=== PATIENT | male | born 1975 | race Caucasian/White ===

== ENCOUNTER 2021-04-26 14:08 | Emergency (ER) | payer OTHER, SELFPAY ==
--- NOTE | 2021-04-26 14:25 | ED_ITS ---
HPI - Psych General Chief Complaint: Psychiatric Symptoms Stated Complaint: Crisis Time Seen by Provider: 04/26/21 14:25 Source: patient Mode of arrival: ambulatory Limitations: no limitations History of Present Illness MD complaint: suicidal ideation (passive no plan), feels depressed and other (off of medications x 3 weeks due to lack of providers) Onset (ago): week(s) (3) Duration: getting worse History of same: Yes Relieving factors: none Exacerbating factors: other (insurance changed lost his therapist/psychiatrist medications stopped abruptly 3 weeks ago - jose bolton) Context: not taking psychiatric medications Associated psychiatric symptoms: depression and suicidal ideation ( I want to plead the 5th because I don't want to be forced to stay here. I have no plan. I have not attempted before. ) Associated symptoms: denies other symptoms Treatments prior to arrival: none If self harm: admits thoughts of self harm Related Data Allergies Allergy/AdvReac Type Severity Reaction Status Date / Time No Known Allergies Allergy Verified 04/26/21 14:35 Review of Systems Verdana 4l Review of Systems: Verdana 4d Verdana 4d Constitutional : No Fever, No Chills ENT/Mouth : No Ear Pain, No Nasal Congestion, No sore throat Eyes: No Eye Pain, No Swelling, No Redness Cardiovascular : No Chest Pain, No SOB Respiratory : No Cough, No Sputum, No Dyspnea GastrointestinalGastrointestinal : No Nausea, No Vomiting, No Diarrhea, No Hematochezia, No Melena Genitourinary : No Dysuria, No Urinary Frequency, No Hematuria Musculoskeletal : No Myalgias Skin : No Skin Lesions, No rash Neuro : No Weakness, No Numbness, No Paresthesias, No Dizziness, No Headache Psych : positive Anxiety, positive Depression, passive SI no plan no HI Heme/Lymph: No Lymphadenopathy Endocrine : No Polyuria, No Polydipsia All other systems reviewed and are negative [facility] Past Medical History Attestation statement: The following information was validated with the patient. Medical History Major depressive disorder Social History Social History (Updated 04/26/21 @ 14:55 by Gali Kidd DO) Patient Tobacco Use Status: Never used Tobacco Substance Use Type: Crack/Cocaine and Marijuana Advance Directives: No Advance Directives Information Provided: No Physical Exam Verdana 4l Vital Signs: Verdana 4d Verdana 4d Vital Signs: Verdana 4d Verdana 4Bd Last Vital Signs Verdana 4d Wash Box Operator New 4d Wash Box Operator New 4d Temp 97.3 F 04/26/21 14:40 Wash Box Operator New 4d Pulse 66 04/26/21 14:40 Wash Box Operator New 4d Resp 16 04/26/21 14:40 BP 124/77 04/26/21 14:40 Pulse Ox 99 04/26/21 14:40 BMI result Body Mass Index 25.0 Appearance: Alert. Oriented X3. No acute distress. Calm and cooperative Eyes: Pupils equal, round and reactive to light. ENT: Pharynx normal. Neck: Normal inspection. Neck supple. CVS: Normal heart rate and rhythm. Pulses normal. Respiratory: No respiratory distress. Breath sounds normal. Abdomen: Soft and non-tender. Skin: Skin warm and dry. Normal skin color. Normal skin turgor. Extremities: No lower extremity edema. No calf ttp Neuro: Oriented X 3. No motor deficit. No sensory deficit. CN2-12 intact Course Course Course Narrative: Physician observation started at 344pm Patient placed in physician observation because the patient needed more time for CARE team to assess his acute psychiatric needs. At the time observation was started the patient's vitals were stable, patient is alert and oriented, Neuro: nonfocal, CV RRR, Lungs clear MDM - Psych MDM Narrative Medical decision making narrative: 45 yo male with hx of major depression here with c/o running out of medications 3 weeks ago passive SI smoking crack on the weekends - not having a therapist or psychiatrist and here in our ED looking for a way to see a therapist/psychiatrist. At this time labs, CARE tem consult ordered. Dispo per their recommendations. Lab Data Result diagrams: 04/26/21 15:26 04/26/21 15:26 Labs: Lab Results 04/26/21 04/26/21 04/26/21 Range/Units 14:28 14:28 15:26 WBC 6.2 (4.8-10.8) X10*3/uL RBC 5.14 (4.60-5.80) X10*6/uL Hgb 15.9 (14.0-18.0) g/dl Hct 46.7 (42.0-52.0) % MCV 90.9 (80.0-98.0) fL MCH 30.9 (27.0-33.0) pg MCHC 34.0 (31.0-36.0) g/dl RDW 12.5 (11.0-16.0) % Plt Count 283 (160-400) X10*3/uL MPV 10.4 (9.4-12.4) fL Immature Gran % 0.3 (0.0-0.4) % (Auto) Neut % (Auto) 57.6 (45-73) % Lymph % (Auto) 23.5 (20-40) % Foster % (Auto) 14.6 H (2-11) % Eos % (Auto) 3.2 (0-4) % Baso % (Auto) 0.8 (0-2) % Lymph # (Auto) 1.5 (1.2-4.9) X10*3/uL Foster # (Auto) 0.9 (0.1-1.2) X10*3/uL Eos # (Auto) 0.2 (0.0-0.4) X10*3/uL Baso # (Auto) 0.1 (0.0-0.2) X10*3/uL Abs Immat Gran (auto) 0.02 (0.00-0.03) X10*3/uL Absolute Neuts (auto) 3.6 (2.0-8.3) x10*3/uL Absolute Nucleated 0.000 (0.0-0.012) RBC X10*3/uL Nucleated RBC % 0.0 (0.0-0.2) /100WBC (auto) Urine Opiates Screen Not Detected (Not Detect) Urine Fentanyl Screen Not Detected (Not Detect) Ur Barbiturates Not Detected (Not Detect) Screen Ur Phencyclidine Scrn Not Detected (Not Detect) Ur Amphetamines Not Detected (Not Detect) Screen U Benzodiazepines Not Detected (Not Detect) Scrn Urine Cocaine Screen Not Detected (Not Detect) U Marijuana (THC) POSITIVE H (Not Detect) Screen COVID-19 (MELODY) Negative (Negative) COVID-19 Clin Com See Note Discharge Plan Discharge Clinical Impression: Depression Qualifiers: Depression Type: unspecified Qualified Code(s): F32.A - Depression, unspecified Patient Disposition: Still a Patient
[2021-04-26 14:40] VITALS: BP 124/77; PULSE 66; RESP 16; TEMP 36.3; O2SAT 99; BMI 25.0
[2021-04-26 14:48] LABS: Amphetamine Screen Urine Not Detected (Not Detect); Barbiturates, Urine Not Detected (Not Detect); Benzodiazepines Screen Urine Not Detected (Not Detect); Cannabinoid Screen Urine POSITIVE (Not Detect); Cocaine Screen Urine Not Detected (Not Detect); Fentanyl, urine Not Detected (Not Detect); Opiate Screen Urine Not Detected (Not Detect); Phencyclidine Screen Urine Not Detected (Not Detect)
[2021-04-26 14:51] LABS: COVID-19 Test Negative (Negative)
[2021-04-26 15:31] LABS: MANUAL DIFF FLAG NO
[2021-04-26 15:35] LABS: Basophils Absolute Auto 0.1 X10*3/uL (0.0-0.2); Basophils Percent Auto 0.8 % (0-2); Eosinophils Absolute Auto 0.2 X10*3/uL (0.0-0.4); Eosinophils Percent Auto 3.2 % (0-4); Hematocrit 46.7 % (42.0-52.0); Hemoglobin 15.9 g/dl (14.0-18.0); Imm Gran Abs Auto 0.02 X10*3/uL (0.00-0.03); Imm Gran Pct Auto 0.3 % (0.0-0.4); Lymphocytes Absolute Auto 1.5 X10*3/uL (1.2-4.9); Lymphocytes Percent Auto 23.5 % (20-40); Mean Corpuscular Hemoglobin 30.9 pg (27.0-33.0); Mean Corpuscular Volume 90.9 fL (80.0-98.0); Mean Platelet Volume 10.4 fL (9.4-12.4); Monocytes Absolute Auto 0.9 X10*3/uL (0.1-1.2); Monocytes Percent Auto 14.6 % (2-11); Neutrophils Absolute Auto 3.6 x10*3/uL (2.0-8.3); Neutrophils Percent Auto 57.6 % (45-73); Platelet Count 283 X10*3/uL (160-400); Red Blood Count 5.14 X10*6/uL (4.60-5.80); Red Cell Distribution Width 12.5 % (11.0-16.0); White Blood Count 6.2 X10*3/uL (4.8-10.8)
[2021-04-26 15:49] LABS: Alanine Aminotransferase 19 U/L (0-40); Albumin Level 4.6 g/dL (3.5-5.0); Alkaline Phosphatase 57 U/L (39-117); Anion Gap 13 (12-20); Aspartate Amino Transferase 12 U/L (5-37); Bilirubin Direct 0.2 mg/dL (0.0-0.5); Bilirubin Total 0.4 mg/dL (0.0-1.0); Blood Urea Nitrogen 18 mg/dL (9-16); Calcium 9.9 mg/dL (8.4-10.2); Carbon Dioxide 26 mmol/L (22-29); Chloride 108 mmol/L (96-108); Creatinine Clr Calc Pharmacy 82.4; Estimated Glomerular Filt Rate > 60; Glucose Random 95 mg/dL (60-115); Potassium 4.7 mmol/L (3.3-5.1); Sodium 142 mmol/L (135-145); Total Protein 6.9 g/dL (6.5-8.0)
--- NOTE | 2021-04-26 16:22 | PC.NURSE ---
resting quietly. no complaints at this time. skin pwd. CARE team present for conversation. Pt states he has been dry of ETOH x 5 years, cocaine use on weekends only,
[2021-04-26 16:39] VITALS: BP 116/70; PULSE 57; RESP 16; TEMP 37; O2SAT 99
--- NOTE | 2021-04-26 20:38 | MHC.CARE ---
CARE team met with pt for a crisis consult. Pt presented to ED by EMS. He reports his insurance was changed and his services were no longer covered, therefore ran out of his medications abruptly. Pt reports he is frustrated with the system and has attempted to obtain providers however this process has been stressful to him and reports feeling overwhelmed and frustrated that he has given up. Pt reports he has called his insurance company obtained providers in network, contacted many and they are either not taking new patients or hasn't contacted him back. He reports he is on long waiting list and doesn't feel he can wait this long. 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 Pt reports he currently lives with his GM because he lost his apartment. Pt reports many psychosocial stressors. 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 He ran out of his medications three weeks ago, reports he has had one previous psych admissio 6 months ago due to loosing his apartment and feeling suicidal. T/w contacted [facility], [facility] and [facility] and there are no records of pt having any psych hx. Pt denies having any suicide attempts. Pt reports this admission was not helpful and more detrimental to his mental health. Pt states he has been smoking crack- last use was last week and THC. Pt reports he has been 5 years sober from alcohol and reports he was addicted to Kratom (opiate) for 8 years which was problematic Pt reports he came to the ED today for assistance with obtaining a therapist and psychiatrist. Pt reports interest in PHP. He was provided with information and hopeful that he is able to start as soon as possible as he reports he is struggling without his medications. Pt states he will continue taking his hydroxyzine which is what he has left. Pt endorses SI with no plan or intent. His SI is in the context of not receiving help. Pt is aware that there will be a referal placed for him and he can follow up on Friday. Case discussed with Clinical coordinator OTTO Giron, FRAME OPERATOR and Dr. Gali Kidd
--- NOTE | 2021-04-28 09:39 | MHC.CARE ---
Contacted pt as a follow up to his ED visit. He stated he is doing well and is, at times Up and down but does sound optimistic about getting into the Partial Hospitalization program. 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 CARE Team will e mail PHP to advise them of same.No SI.
== END 2021-04-26 17:23 | disposition home or self-care (01) ==
PROVIDERS: Emergency Provider Emergency Medicine
DX: F32.A Depression, unspecified (principal); R45.851 Suicidal ideations; Z20.822 Contact with and (suspected) exposure to COVID-19
CPT/HCPCS: 36415; 80048; 80076; 80307; 85025; 87635; 99284; 99285

== ENCOUNTER 2021-05-11 10:15 | Outpatient (RCR) | payer OTHER, SELFPAY ==
[2021-05-02 14:48] VITALS: BMI 25.0
--- NOTE | 2021-05-02 15:18 | PC.ADMIT ---
Patient is a 45 year old male who was referred to PHP by the [facility] Care Team d/t increased depression with SI no plan or intent, feeling overwhelmed with work related stressors and stated he has called out numerous times d/t symptoms of depression. Patient reports last night he had a panic attack. Patient stated he rather be rather than deal with everything. 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 Patient fears he will lose his job and worried how he will support himself if this happens. Patient stated his boss has been supportive and allowing him to work shorter hours. Patient reports he is trying to keep his job. 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 Patient did state that his insurance changed thus he was not able to continue his medications he was on and is not able to see his providers as a result. Patient feels his increase in symptoms is partially due to being off his medications for a month. Patient reports he has applied for disability before and was denied. He stated his father supported him for a year and he has much guilt surrounding that. Patient reports he has been sober 3 weeks from substances. Reports he was addicted to Kratom for the past 8 years and was using 40 grams daily. Stated he took off a week from work to detox and slowly weaned himself off. Stated he did not like what he was doing to his health and it was expensive spending 100-150 dollars a week. Patient is alert and oriented x4. Calm and cooperative. Presents with depressed mood and affect. Reports SI plan or intent. Patient currently is not on any prescription medications confirmed with patient and patient's pharmacy.
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
--- NOTE | 2021-05-04 08:40 | PC.NURSE ---
Case opened in treatment team
--- NOTE | 2021-05-09 13:11 | P.PNPSP_ITS ---
Subjective Subjective Date of Service: 05/09/21 Reason For Visit: MDD Guardianship: No Medical Problems Affecting Mental Status: No Interim History: Emanuel reports feeling improvement after starting Wellbutrin and Abilify last week. He states that his level of distress has decreased, and he has been able to go to work each day ?fairly easily ?. He states he is satisfied with this combination, would like dose increase. Denies SI. Denies anxiety, or panic. Medication Compliance: Yes Side effects from medications: No Attending Groups: Yes Review of Systems Acute medical concerns: No Medical Review of Systems: unchanged Review of Systems Review of Systems Yes all other systems are reviewed and are negative Constitutional: Reports no additional constitutional complaints Mental Status Exam Mental Status Exam Narrative: Well-nourished, well-developed male, in NAD. No abnormal movements, no tics or tremors present. Patient Appearance: Well Grooomed, Fatigued and Appropriate Patient Orientation: Person, Place, Time and Situation Level of Consciousness: Awake, Appropriate and Alert Patient Behavior: Appropriate and Cooperative Mood Description: Calm, Appropriate and Depressed (Reports that although feeling some dysphoric mood, overall much improved.) Affect Description: Calm, Appropriate and Depressed (Some symptoms, although much improved.) Patient Cognition Impaired: No Ability to Follow Directions: Excellent Speech Pattern: Clear, Appropriate and Coherent Memory Description: Intact Hallucinations: None Delusions: Not Present Thought Process: Intact, Goal Oriented and Linear Thought Content: positive for Intact, positive for Goal Oriented and positive for Linear Depressive Symptoms: Difficulty Sleeping (Reports that he wakes up early at times, but states it is nothing problematic.), Loss of Int. in Activity and Difficulty Concentrating Judgement: Good Diagnostics Vital Signs (24Hr): BMI result Body Mass Index 25.0 Assessment & Plan Assessment & Plan (1) Bipolar 2 disorder, major depressive episode: Status: Acute Code(s): F31.81 - Bipolar II disorder Assessment and Plan: Client review reports his mood feels much improved, although continues with some depression and anxiety. Reports no side effects from the medications Wellbutrin or Abilify, is asking for increase in dose for each, as he has previously been on higher doses of eat in the past. He reports that he does not want emotional flattening, but his concern at present is that he is not handling anything very stressful in his life, but once he completes program which is expected this Friday, and resumes work full-time, he does not want to experience increase in symptoms. Denies any thought of harm to self or others, no safety concern. We discussed increased dosing with possible effects they could have on sleep or anxiety. He will report back if he experiences increase any of these symptoms. Client concerned, as it may be up to 2 months before he sees an outpatient provider. He is currently on a wait list. Asking for a 1 month supply, with 1 refill. Client did not discuss any substance use disorder concerns during this encounter. Plan 1. Increase Wellbutrin to 300 mg XL daily. (30-day supply sent, with 1 refill). 2. Increase Abilify to 5 mg daily (30-day supply sent, with 1 refill). 3. Continue with current [facility] plan of care. 4. Discharge from [facility] when stable. Patient educated on: diagnosis, medication risk/benefits and therapeutic strategies Reason for contiued partial hosp. stay Substantial Risk for: inability to function and med/psych decompensation Certification I certify that partial hospital treatment is medically necessary due to the symptoms and problems resulting from the patient's mental illness and the failure to treat the patient at the partial hospital level of care would likely result in the patient requiring inpatient psychiatric care which could not be prevented at a less intensive level of care. I spent minutes with the patient and/or on the patient floor today, greater than?50% of which was spent counseling/coordinating care. Discharge Plan Discharge Attending provider: Eligio Quintero Additional Instructions: New PCP appointment with Dr. Caden Martin at [facility] [address] [place] [address] on 06/27/21 at 10:00 am. Intake for therapist and prescriber 05/15/21 @ 9 am with Yvette OLIVER @ [facility] Medications: New bupropion HCl [Wellbutrin XL] 300 mg tablet extended release 24 hr 300 mg PO QAM Qty: 30 1RF aripiprazole [Abilify] 5 mg tablet 5 mg PO DAILY Qty: 30 1RF Stand Alone Forms: Patient Portal Discharge page Telehealth Telehealth Location of provider rendering services: practice address Location of patient: address on file Patient Identification confirmed using: Name, : Yes Telehealth method: video Patient verbally consented to billing insurance company: Yes Patient informed of any privacy concerns related to visit: Yes Time spent with patient (mins): 20
--- NOTE | 2021-05-09 14:20 | PC.NURSE ---
I called [facility] for referral for therapist and prescriber. They gave me an intake time with Yvette Blackmon [facility] 05/15
--- NOTE | 2021-05-11 15:14 | PC.NURSE ---
Patient discharged from the program today. Reviewed patient medications with patient. Patient reports taking medications as prescribed. Denied any safety issues, no SI.
== END 2021-05-14 23:59 | disposition home or self-care (01) ==
LOC: HO.PHPA 10:15
PROVIDERS: Visit Provider Psychiatry & Neurology Psychiatry
DX: F31.81 Bipolar II disorder (principal); F11.20 Opioid dependence, uncomplicated; F14.10 Cocaine abuse, uncomplicated; F10.21 Alcohol dependence, in remission; F19.10 Other psychoactive substance abuse, uncomplicated
CPT/HCPCS: 90791; 90853